=== PATIENT | male | born 1985 | race Two or more races ===

== ENCOUNTER 2017-05-16 14:01 | Emergency (ER) | payer SELFPAY ==
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
--- NOTE | 2017-05-16 15:04 | RADIOLOGY REPORT (SQ) ---
EXAM DESCRIPTION: RIBS LEFT W/PA CHEST COMPLETED DATE/TIME: 05/16/2017 2:48 pm REASON FOR STUDY: Pain in left ribs from injury last week COMPARISON: None. TECHNIQUE: Frontal view of the chest and additional views of the left ribs acquired. NUMBER OF VIEWS: Three view. LIMITATIONS: None. FINDINGS: FRONTAL CXR: No pneumothorax. No pleural effusion. No atelectasis or infiltrates. RIBS: No displaced rib fractures. No lytic or blastic bony lesions. OTHER: No other significant finding. IMPRESSION: NO PNEUMOTHORAX. NO DISPLACED RIB FRACTURES. COMMENT: SITE OF TRAUMA/COMPLAINT MARKED/STAMP COMPLETED: NO. TECHNICAL DOCUMENTATION: JOB ID: [id number] [employer]- All Rights Reserved Reading location - IP/workstation name: [email or web address]
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
[2017-05-16 16:30] VITALS: BP 134/79
== END 2017-05-16 16:32 | disposition home or self-care (01) ==
LOC: ER 14:01
DX: S20.212A Contusion of left front wall of thorax, initial encounter (principal); R07.81 Pleurodynia; Y04.0XXA Assault by unarmed brawl or fight, initial encounter
CPT/HCPCS: 99283

== ENCOUNTER 2017-06-22 12:58 | Emergency (ER) | payer SELFPAY ==
[2017-06-22 13:32] LABS: APPEARANCE,URINE CLEAR; BILIRUBIN,URINE NEGATIVE (NEGATIVE); COLOR,URINE YELLOW; GLUCOSE, URINE NEGATIVE (NEGATIVE); KETONES,URINE NEGATIVE (NEGATIVE); LEUKOCYTE ESTERASE,URINE NEGATIVE (NEGATIVE); NITRITE,URINE NEGATIVE (NEGATIVE); PROTEIN,URINE NEGATIVE (NEGATIVE); URINE SPECIFIC GRAVITY 1.011; UROBILINOGEN,URINE NEGATIVE mg/dL (<2.0)
--- NOTE | 2017-06-22 13:55 | ER Document Report ---
ED Medical Screen (RME) - General Chief Complaint: Urinary Problem Stated Complaint: URINARY PROBLEM Time Seen by Provider: 06/22/17 13:55 Notes: Patient reports 3 days of blood in his urine. He states he had some painful urination first couple of days but not today. He states today he noticed some rectal bleeding and does have soreness around his rectal area. He also states that his scrotum is "sore". TRAVEL OUTSIDE OF THE [place] IN LAST 30 DAYS: No - Related Data Allergies/Adverse Reactions: peanut Allergy (Verified 06/22/17 13:01) Past Medical History Renal/ Medical History: Denies: Hx Peritoneal Dialysis Physical Exam - Vital signs Vitals: Temp Pulse Resp BP Pulse Ox 97.9 F 81 20 139/86 H 99 06/22/17 13:19 06/22/17 13:19 06/22/17 13:19 06/22/17 13:19 06/22/17 13:19 Course - Vital Signs Vital signs: Temp Pulse Resp BP Pulse Ox 97.9 F 81 20 139/86 H 99 06/22/17 13:19 06/22/17 13:19 06/22/17 13:19 06/22/17 13:19 06/22/17 13:19
[2017-06-22 14:26] LABS: ABSOLUTE BASOPHILS # (AUTO) 0.1 10^3/uL (0.0-0.2); ABSOLUTE EOSINOPHILS # (AUTO) 0.3 10^3/uL (0.0-0.6); ABSOLUTE LYMPHOCYTES (AUTO) 2.7 10^3/uL (0.5-4.7); ABSOLUTE MONOCYTES (AUTO) 0.7 10^3/uL (0.1-1.4); ABSOLUTE NEUT (AUTO) 6.3 10^3/uL (1.7-8.2); BASOPHILS % (AUTO) 0.5 % (0-2); EOSINOPHILS % (AUTO) 2.8 % (0-6); HEMATOCRIT 44.6 % (37.9-51.0); HEMOGLOBIN 15.4 g/dL (13.5-17.0); LYMPHOCYTES % (AUTO) 26.7 % (13-45); MEAN CORPUSCULAR HEMOGLOBIN 27.3 pg (27.0-33.4); MEAN CORPUSCULAR HGB CONC 34.6 g/dL (32.0-36.0); MEAN CORPUSCULAR VOLUME 79 fl (80-97); MONOCYTES % (AUTO) 7.4 % (3-13); PLATELET COUNT 315 10^3/uL (150-450); RED BLOOD COUNT 5.66 10^6/uL (4.35-5.55); RED CELL DISTRIBUTION WIDTH 13.9 % (11.5-14.0); SEGMENTED NEUTROPHILS % (AUTO) 62.6 % (42-78); TOTAL CELLS COUNTED % (AUTO) 100 %; WHITE BLOOD COUNT 10.1 10^3/uL (4.0-10.5)
[2017-06-22 14:47] LABS: ALANINE AMINOTRANSFERASE 31 U/L (21-72); ALBUMIN 4.9 g/dL (3.5-5.0); ALKALINE PHOSPHATASE 114 U/L (38-126); ANION GAP 9 (5-19); ASPARTATE AMINO TRANSFERASE 20 U/L (17-59); BILIRUBIN,DIRECT 0.1 mg/dL (0.0-0.4); BILIRUBIN,TOTAL 0.4 mg/dL (0.2-1.3); BLOOD UREA NITROGEN 13 mg/dL (7-20); CALCIUM 10.5 mg/dL (8.4-10.2); CARBON DIOXIDE 34 mmol/L (22-30); CHLORIDE 99 mmol/L (98-107); GLUCOSE 96 mg/dL (75-110); POTASSIUM 4.7 mmol/L (3.6-5.0); SODIUM 142.1 mmol/L (137-145)
--- NOTE | 2017-06-22 16:25 | ER Document Report ---
ED General - General Chief Complaint: Urinary Problem Stated Complaint: URINARY PROBLEM Time Seen by Provider: 06/22/17 13:55 Mode of Arrival: Ambulatory Information source: Patient Notes: Patient states that he noticed some blood in his urine for 3-4 days. He states he had some initial pain with urination but has had none for the last 24 hours. He states that today he noticed some blood in his bowel movement and had some rectal pain. He also states that his scrotum has been painful for several days and it is pleuritic. He states that the scrotum is diffusely "sore". It is worse when touched and better if left alone. There is no significant radiation of the pain. He has no contacts with similar symptoms. He does not have intercourse anyone other than his fiance he states. He states his fiance has no symptoms. Patient denies any penile discharge. The discomfort has been constant. TRAVEL OUTSIDE OF THE [place] IN LAST 30 DAYS: No - Related Data Allergies/Adverse Reactions: peanut Allergy (Verified 06/22/17 13:01) Past Medical History - General Information source: Patient - Social History Smoking Status: Never Smoker Chew tobacco use (# tins/day): No Frequency of alcohol use: Occasional Drug Abuse: Marijuana Family History: Reviewed & Not Pertinent Patient has suicidal ideation: No Patient has homicidal ideation: No Renal/ Medical History: Denies: Hx Peritoneal Dialysis Review of Systems - Review of Systems Constitutional: denies: Chills, Fever Cardiovascular: denies: Chest pain, Palpitations Respiratory: denies: Cough, Short of breath -: Yes All other systems reviewed and negative Physical Exam - Vital signs Vitals: Temp Pulse Resp BP Pulse Ox 97.9 F 81 20 139/86 H 99 06/22/17 13:19 06/22/17 13:19 06/22/17 13:19 06/22/17 13:19 06/22/17 13:19 Interpretation: Normal - General General appearance: Appears well, Alert - HEENT Head: Normocephalic, Atraumatic Eyes: Normal Pupils: PERRL - Respiratory Respiratory status: No respiratory distress Chest status: Nontender Breath sounds: Normal Chest palpation: Normal - Cardiovascular Rhythm: Regular Heart sounds: Normal auscultation Murmur: No - Abdominal Inspection: Normal Distension: No distension Bowel sounds: Normal Tenderness: Nontender Organomegaly: No organomegaly - Genitourinary Inspection: Other - Patient's scrotum is diffusely erythematous with some excoriated lesions. The ventral surface of the penis also has some excoriated lesions. The exam appears most consistent with scabies. Exam is not consistent with cellulitis. - Back Back: Normal, Nontender - Extremities General upper extremity: Normal inspection, Nontender, Normal color, Normal ROM , Normal temperature General lower extremity: Normal inspection, Nontender, Normal color, Normal ROM , Normal temperature, Normal weight bearing. No: Elvie's sign - Neurological Neuro grossly intact: Yes Cognition: Normal Orientation: AAOx4 Rocio Coma Scale Eye Opening: Spontaneous Rocio Coma Scale Verbal: Oriented Rocio Coma Scale Motor: Obeys Commands Roxton Coma Scale Total: 15 Speech: Normal Motor strength normal: LUE, RUE, LLE, RLE Sensory: Normal - Psychological Associated symptoms: Normal affect, Normal mood - Skin Skin Temperature: Warm Skin Moisture: Dry Skin Color: Other - Normal except as noted in genitourinary exam Course - Vital Signs Vital signs: Temp Pulse Resp BP Pulse Ox 97.9 F 81 20 139/86 H 99 06/22/17 13:19 06/22/17 13:19 06/22/17 13:19 06/22/17 13:19 06/22/17 13:19 - Laboratory Result Diagrams: 06/22/17 14:06 06/22/17 14:06 Laboratory results interpreted by me: 06/22/17 06/22/17 14:06 14:06 RBC 5.66 H MCV 79 L Carbon Dioxide 34 H Calcium 10.5 H Total Protein 9.0 H Discharge - Discharge Clinical Impression: Scabies Condition: Stable Disposition: HOME, SELF-CARE Instructions: [facility] Prescriptions: Permethrin [Elimite] 60 gm TP ONCE PRN 1 Days cream.gm. PRN Reason: Forms: Return to Work
[2017-06-22 16:36] VITALS: BP 132/88
== END 2017-06-22 16:35 | disposition home or self-care (01) ==
LOC: ER 12:58
DX: B86 Scabies (principal); R31.0 Gross hematuria; K92.1 Melena; K62.89 Other specified diseases of anus and rectum; N50.82 Scrotal pain; F12.10 Cannabis abuse, uncomplicated; Z91.010 Allergy to peanuts
CPT/HCPCS: 36415; 80053; 81001; 85025; 99283

== ENCOUNTER 2017-09-02 23:37 | Emergency (ER) | payer SELFPAY ==
[2017-09-03] MEDS ORDERED: LIDOCAINE 1% INJ-PF (10 MG/ML) 30 ML SDV INJ ONE (00:52)
[2017-09-03] MEDS ORDERED: OXYCODONE-ACETAMINOPHEN 5-325 MG TABLET PO ONE (00:52)
[2017-09-03] MEDS ORDERED: PROMETHAZINE HCL 25 MG TABLET PO ONE (00:52)
--- NOTE | 2017-09-03 00:54 | ER Document Report ---
ED Skin Rash/Insect Bite/Abscs - General Chief Complaint: Drainage Stated Complaint: MULTIPLE ABSCESS Time Seen by Provider: 09/03/17 00:41 Notes: Patient is a 32-year-old male comes emergency department for chief complaint of abscesses, he has one on each leg and one on his right buttock area. Symptoms started 2 days ago. He has had one abscess in the past, typically does not have them. All of them just opened up and started to drain. He denies history of diabetes, he denies any other medical history. He denies fever chills, nausea or vomiting. TRAVEL OUTSIDE OF THE [place] IN LAST 30 DAYS: No - Related Data Allergies/Adverse Reactions: peanut Allergy (Verified 06/22/17 13:01) Past Medical History - General Information source: Patient - Social History Smoking Status: Never Smoker Drug Abuse: None Lives with: Alone Family History: Reviewed & Not Pertinent Renal/ Medical History: Denies: Hx Peritoneal Dialysis Surgical Hx: Negative - Immunizations Hx Diphtheria, Pertussis, Tetanus Vaccination: Yes Review of Systems - Review of Systems Constitutional: No symptoms reported EENT: No symptoms reported Cardiovascular: No symptoms reported Respiratory: No symptoms reported Gastrointestinal: No symptoms reported Genitourinary: No symptoms reported Male Genitourinary: No symptoms reported Musculoskeletal: No symptoms reported Skin: See HPI Hematologic/Lymphatic: No symptoms reported Neurological/Psychological: No symptoms reported Physical Exam - Vital signs Vitals: Temp Pulse Resp BP Pulse Ox 97.5 F 93 28 H 126/80 H 98 09/02/17 23:48 09/02/17 23:48 09/02/17 23:48 09/02/17 23:48 09/02/17 23:48 - Notes Notes: GENERAL: Alert, interacts well. No acute distress. HEAD: Normocephalic, atraumatic. EYES: Pupils equal, round, and reactive to light. Extraocular movements intact. ENT: Oral mucosa moist, tongue midline. NECK: Full range of motion. Supple. Trachea midline. LUNGS: Clear to auscultation bilaterally, no wheezes, rales, or rhonchi. No respiratory distress. HEART: Regular rate and rhythm. No murmur ABDOMEN: Soft, non-tender. Non-distended. Bowel sounds present in all 4 quadrants. EXTREMITIES: Moves all 4 extremities spontaneously. No edema, normal radial and dorsalis pedis pulses bilaterally. No cyanosis. BACK: no cervical, thoracic, lumbar midline tenderness. No saddle anesthesia, normal distal neurovascular exam. NEUROLOGICAL: Alert and oriented x3. Normal speech. [cranial nerves II through XII grossly intact]. PSYCH: Normal affect, normal mood. SKIN: Erythematous fluctuant abscess noted over the right buttock but not extending to the rectal or perirectal area. Distal extremities on both legs with 1 erythematous tender area each, both areas have had recent drainage, no significant induration or fluctuance noted, normal lower extremity and upper extremity exam otherwise. Normal skin exam otherwise. Course - Re-evaluation Re-evalutation: Patient with a 1 fluctuant abscess on the right buttock which was drained and dressed. Resolving areas on the legs patient declined any drainage, areas do appear to be resolving, no significant induration or fluctuance, minimal cellulitis. Unremarkable vital signs. Patient placed on antibiotics because of the cellulitis and multiple areas of infection, discussed recommendations, follow-up, return precautions. Patient states understanding and agreement. - Vital Signs Vital signs: Temp Pulse Resp BP Pulse Ox 98.3 F 66 16 103/62 98 09/03/17 02:38 09/03/17 02:38 09/03/17 02:38 09/03/17 02:38 09/03/17 02:38 Procedures - Incision and Drainage Right gluteal region Type: Single Blade size: 11 I&D procedure: Shurclens applied, Sterile dressing applied Incision Method: Incision made by scalpel Amount/type of drainage: Moderate amount of purulent drainage, small amount of bloody drainage Discharge - Discharge Clinical Impression: Abscess Condition: Stable Disposition: HOME, SELF-CARE Additional Instructions: Abscess on the buttocks has been drained, remaining areas are resolving, take antibiotics as prescribed, clean areas with soap and water, keep absorbing clean dressings over the areas. This should resolve with time. Follow-up with primary care. Return if you worsen including spreading redness, fever, or any other concerning symptoms. Prescriptions: Cephalexin Monohydrate [Keflex 500 mg Capsule] 500 mg PO QID #28 capsule Sulfamethoxazole/Trimethoprim [Bactrim Ds Tablet] 1 each PO BID #14 tablet
[2017-09-03] MEDS ORDERED: SULFAMETHOXAZOLE/TRIMETHOPRIM 800-160 MG TABLET PO ONE (02:14)
[2017-09-03] MEDS ORDERED: CEPHALEXIN 500 MG CAPSULE PO ONE (02:14)
[2017-09-03] MEDS ORDERED: HYDROCODONE/ACETAMINOPHEN 5-325 MG (6 TAB/ER DISP) PO PRN (02:14)
[2017-09-03 02:38] VITALS: BP 103/62
== END 2017-09-03 03:00 | disposition home or self-care (01) ==
LOC: ER 23:37
DX: L02.31 Cutaneous abscess of buttock (principal); L02.416 Cutaneous abscess of left lower limb; L02.415 Cutaneous abscess of right lower limb; L03.119 Cellulitis of unspecified part of limb; Z91.010 Allergy to peanuts
CPT/HCPCS: 99283; 10060; J3490